=== PATIENT | female | born 2000 | race Two or more races ===

== ENCOUNTER 2022-01-08 13:00 | Inpatient (IN) | payer OTHER ==
[~2022-01-08] VITALS: Ht 172.7 cm; Wt 90.7 kg
[2022-01-10] MEDS ORDERED: PRENATAL TABLE1 EAC1 PO (18:29)
[2022-01-11] MEDS ORDERED: RHOGAM ULTR1500 UNIT IM (08:04)
== END 2022-01-12 11:33 | disposition home or self-care (01) | DRG 807 ==
LOC: LDR 01-10 17:53 → OB/GYN 01-10 17:53 → LDR 01-18 13:00
PROVIDERS: ADMIT Specialist; ATTEND Specialist
PROC: 10E0XZZ Delivery of Products of Conception, External Approach (ICD-10-PCS; principal; 2022-01-10)
PROC: 4A1HXCZ Monitoring of Products of Conception, Cardiac Rate, External Approach (ICD-10-PCS; 2022-01-10)
DX: O80 Encounter for full-term uncomplicated delivery (principal); Z37.0 Single live birth; Z3A.38 38 weeks gestation of pregnancy; Z20.822 Contact with and (suspected) exposure to COVID-19

== ENCOUNTER 2025-01-03 09:01 | Outpatient (CLI) | payer OTHER ==
[~2025-01-03 09:01] MED LIST: PRENATAL TABLE1 EAC1 PO; RHOGAM ULTR1500 UNIT IM
[2025-01-03 10:49] LABS: MYCOPLASMA PNEUMONIAE IGM REACTIVE (NO REACTIVE)
[2025-01-03 11:05] LABS: COVID-19 AG POSITIVE (NEGATIVE)
== END 2025-01-03 09:06 | disposition home or self-care (01) ==
LOC: LAB 09:01
PROVIDERS: ATTEND Specialist
DX: Z20.822 Contact with and (suspected) exposure to COVID-19 (principal); J10.1 Influenza due to other identified influenza virus with other respiratory manifestations; A49.3 Mycoplasma infection, unspecified site

== ENCOUNTER 2025-01-08 14:30 | Inpatient (IN) | payer OTHER ==
[~2025-01-08] VITALS: Ht 172.7 cm; Wt 88.5 kg
[2025-01-11 05:45] VITALS: BP 122/69
[2025-01-11 07:04] LABS: URINE APPEARANCE Clear; URINE BILIRRUBIN Negative (NEGATIVE); URINE BLOOD Negative; URINE COLOR Yellow; URINE GLUCOSE Negative (NEGATIVE); URINE KETONE Negative (NEGATIVE); URINE LEUKOCYTE Small; URINE NITRATE Negative; URINE PROTEIN Trace (NEGATIVE); URINE UROBILINOGEN 1.0 E.U./dl
[2025-01-11 07:08] LABS: URINE BACTERIA 745.0 uL (0.0-1933); URINE EPITHELIAL CELLS 33.8 uL (0.0-38.8); URINE RBC 5.8 uL (0.0-20.8); URINE WBC 32.2 uL (0.0-23.2)
[2025-01-11 07:09] LABS: BASO % 0.2 % (0.1-1.2); EOS # 0.05 (0.04-0.54); EOS % 0.4 % (0.7-7.0); LYMPH # 1.81 (1.18-3.74); LYMPH % 15.0 % (19.3-53.1); MEAN PLATELET VOLUME 10.00 fl (9.4-12.4); MONO # 1.01 (0.24-0.82); MONO % 8.4 % (4.7-12.5); NEUT # 9.07 (1.56-6.13); NEUT % 75.3 % (34.0-71.1); RED CELL DISTRIBUTION WIDTH 13.8 % (11.6-14.4)
[2025-01-11 07:14] LABS: URINE CAST 0.00 uL (0.0-1.40)
[2025-01-11] MEDS ORDERED: AMPICILLIN SODIUM 2,000 MG VIAL IV ONE (07:15)
[2025-01-11 07:25] LABS: INR < 0.93
[2025-01-11 07:30] VITALS: BP 106/64
[2025-01-11] MEDS ORDERED: RINGERS SOLUTION,LACTATED 125 ML IV SCH (07:30)
[2025-01-11 07:53] LABS: ALT/SGPT 21.0 U/L (12-78); AST/SGOT 15.0 U/L (15-37); BILIRUBIN TOTAL 0.32 mg/dL (0.3-1.2); BUN CREA RATIO 10.0 (7.0-25.0); CREATININE SERUM 0.58 mg/dL (0.55-1.02); GFR 125.66; GLOBULINA 4.1 G/DL (2.4-3.5); GLUCOSE FASTING 86.0 mg/dL (65-100); OSMOLALITY SERUM 280.0 MOSM/KG (275-295)
[2025-01-11] MEDS ORDERED: AMPICILLIN SODIUM 1,000 MG VIAL IV SCH (09:00)
[2025-01-11] MEDS ORDERED: ERYTHROMYCIN BASE OPHT 1GM EACH TUBE OP ONE (09:45)
[2025-01-11] MEDS ORDERED: ACETAMINOPHEN 500 MG GEL..CAP PO PRN (09:45)
[2025-01-11] MEDS ORDERED: CHLORHEXIDINE GLUCONATE 120 ML BOTTLE TOP ONE (09:45)
[2025-01-11] MEDS ORDERED: HYDROCORTISONE 2.5% 30 GM TUBE RECTAL SCH (13:00)
[2025-01-11] MEDS ORDERED: BENZOCAINE/MENTHOL 90 ML BOTTLE TOP SCH (13:00)
[2025-01-11 13:39] VITALS: BP 131/77
[2025-01-11 16:00] VITALS: BP 115/72
[2025-01-12 01:00] VITALS: BP 117/69
[2025-01-12 02:03] LABS: BASO % 0.3 % (0.1-1.2); EOS # 0.09 (0.04-0.54); EOS % 0.6 % (0.7-7.0); LYMPH # 2.12 (1.18-3.74); LYMPH % 13.5 % (19.3-53.1); MEAN PLATELET VOLUME 10.50 fl (9.4-12.4); MONO # 1.25 (0.24-0.82); MONO % 8.0 % (4.7-12.5); NEUT # 12.10 (1.56-6.13); NEUT % 77.1 % (34.0-71.1); RED CELL DISTRIBUTION WIDTH 13.8 % (11.6-14.4)
[2025-01-12] MEDS ORDERED: HYPERRHO S-1500 UNIT IM (07:33)
[2025-01-12] MEDS ORDERED: FF) RHO(D) IMMUNE GLOBULIN (POM) IM NR (07:45)
[2025-01-12 08:31] VITALS: BP 111/69
[2025-01-12 18:30] VITALS: BP 135/90
[2025-01-13] VITALS: BP 114/66
[2025-01-13 08:39] VITALS: BP 116/74
== END 2025-01-13 12:33 | disposition home or self-care (01) | DRG 807 ==
LOC: LDR 01-11 06:11 → OB/GYN 01-11 06:11 → SURG-SUITE 01-15 14:30
PROVIDERS: ADMIT Specialist; ATTEND Specialist
PROC: 10E0XZZ Delivery of Products of Conception, External Approach (ICD-10-PCS; principal; 2025-01-11)
PROC: 4A1HXCZ Monitoring of Products of Conception, Cardiac Rate, External Approach (ICD-10-PCS; 2025-01-11)
DX: O99.824 Streptococcus B carrier state complicating childbirth (principal); Z37.0 Single live birth; Z3A.39 39 weeks gestation of pregnancy